=== PATIENT | male | born 1940 | race African-American/Black ===

== ENCOUNTER 2017-11-15 00:02 | Inpatient (IN) | payer MEDICARE, BC, OTHER ==
[2017-11-15 01:05] VITALS: BP 125/65; PULSE 72; RESP 22; TEMP 98; O2SAT 99
[2017-11-15] MEDS ORDERED: ACETAMINOPHEN 325 MG TAB PO PRN ×2 (01:45→10:45)
[2017-11-15] MEDS ORDERED: diphenhydrAMINE HCL 50 MG CAP - HS PRN PO (01:45)
[2017-11-15] MEDS ORDERED: diphenhydrAMINE HCL 50 MG/ML VIAL - HS PRN IM (01:45)
[2017-11-15] MEDS ORDERED: MAGNESIUM HYDROXIDE SUSP 30 ML CUP PO PRN ×2 (01:45→10:45)
[2017-11-15] MEDS ORDERED: ALUMINUM/MAGNESIUM/SIMETH 30 ML CUP PO PRN ×2 (01:45→10:45)
[2017-11-15] MEDS ORDERED: hydrOXYzine HCL 50 MG TAB PO PRN (01:45)
[2017-11-15 04:45] VITALS: BP 128/61; PULSE 60; RESP 17; TEMP 98.1; O2SAT 100
[2017-11-15] MEDS ORDERED: LORazepam 0.5 MG TAB PO PRN (10:45)
[2017-11-15] MEDS ORDERED: LORazepam 2 MG/ML VIAL IM PRN ×2 (10:45)
[2017-11-15] MEDS ORDERED: LORazepam 1 MG TAB PO PRN (10:45)
--- NOTE | 2017-11-15 10:55 | HHI.HP ---
Provisional Diagnosis Admission Date Nov 15, 2017 at 01:00 [place]. 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 Express and informed consent means consent voluntarily given in writing, by a competent person, after sufficient explanation and disclosure of the subject matter involved to enable the person to make a knowing and willful decision without any element of force, fraud, deceit, duress, or other form of constraint or coercion. This person is 18 years of age or older, is not now known to be incompetent to consent to treatment with a guardian advocate, and does not have a health care surrogate or proxy currently making medical treatment decisions. I have found this person to be one of the following: [] Competent to provide express and informed consent, as defined above, for voluntary admission to this facility and is competent to provide express and informed consent for treatment. He/she has the consistent capacity to make well reasoned, willful, and knowing decisions concerning his or her medical or mental health treatment. The person fully and consistently understands the purpose of the admission for examination/placement and is fully capable of personally exercising all rights assured under [place] Incompetent to provide express and informed consent to voluntary admission , and this is incompetent to provide express and informed consent to treatment. The person must be transferred to involuntary status and a petition for a guardian advocate filed with the Circuit Court. [] Refusing to provide express and informed consent to voluntary admission but is competent to provide express and informed consent for treatment. The person must be discharged or transferred to involuntary status. Form shall be completed within 24 hours of a person's arrival at the receiving facility and filed in the clinical record of each person: 1. Admitted on a voluntary basis 2. Permitted to provide express and informed consent to his/her own treatment 3. Allowed to transfer from involuntary to voluntary status 4. Prior to permitting a person to consent to his or her own treatment after having been previously found incompetent to consent to treatment. History of Present Illness Capacity: Lacks Capacity Psych Chief Complaint: patient demented, assaultive towards HPI Patient is a 77 with Afro-Rwandan male comes here under an ex parte signed by his and signed by Employee Benefits Insurance Agent Munir. Patient initially screened at [facility] with urine toxicology negative bladder: Negative. Patient transferred here under the [place] act. The ex parte states patient has been showing increased aggression at home physically laying hands on his pushing shoving her to the blood pressure feels fearful for her safety. It appears there is no other past significant psychiatric history. At the present time patient sitting quietly in his room RN present throughout session and family practice resident Dr. Khan he is calm cooperative though obviously diffusely confused making efforts to disguises his confusion and disorientation. While he knows his [place] and [place] [id number] in November he is confused as to if this is really a hospital, he does not know the activities going on in the city right now. Attempted looks like he is guessing get an answer and watching our expressions. He is confusing also as to his marital status. The activities that occurred leading to the ex parte. He does deny any prior psychiatric contact hospitalization her psychotropic medication. He denies any suicidality homicidality voices or visions. He is somewhat vague about use of alcohol and marijuana. At this time patient does meet criteria for involuntary psychiatric hospitalization under the Tol[place] act. I'll do first opinion request second opinion. I feel he does not have capacity. I'll ask for healthcare surrogate and guardian advocate. Above hospitalist also consult of this gentleman. Also have PT consult with us. Will have counselor contact patient's to get further information Review of Systems Constitutional: DENIES: Diaphoretic episodes, Fatigue, Fever, Weight gain, Weight loss, Chills, Dizziness, Change in appetite, Night Sweats Endocrine: DENIES: Heat/cold intolerance, Polydipsia, Polyuria, Polyphagia Eyes: DENIES: Blurred vision, Diplopia, Eye inflammation, Eye pain, Vision loss , Photosensitivity, Double Vision Ears, nose, mouth, throat: DENIES: Tinnitus, Hearing loss, Vertigo, Nasal discharge, Oral lesions, Throat pain, Hoarseness, Ear Pain, Running Nose, Epistaxis, Sinus Pain, Toothache, Odynophagia Respiratory: DENIES: Apneas, Cough, Snoring, Wheezing, Hemoptysis, Sputum production, Shortness of breath Cardiovascular: DENIES: Chest pain, Palpitations, Syncope, Dyspnea on Exertion , PND, Lower Extremity Edema, Orthopnea, Claudication Gastrointestinal: DENIES: Abdominal pain, Black stools, Bloody stools, Constipation, Diarrhea, Nausea, Vomiting, Difficulty Swallowing, Anorexia Genitourinary: DENIES: Sexual dysfunction, Urinary frequency, Urinary incontinence, Urgency, Hematuria, Dysuria, Nocturia, Penile Discharge, Testicular Pain, Testicular Swelling Musculoskeletal: DENIES: Joint pain, Muscle aches, Stiffness, Joint Swelling, Back pain, Neck pain Integumentary: DENIES: Abnormal pigmentation, Nail changes, Pruritus, Rash Hematologic/lymphatic: DENIES: Bruising, Lymphadenopathy Immunologic/allergic: DENIES: Eczema, Urticaria Neurologic: DENIES: Abnormal gait, Headache, Localized weakness, Paresthesias, Seizures, Speech Problems, Tremor, Poor Balance Psychiatric: COMPLAINS OF: Agitation Past Psych History Violence risk - others (6 mos) Patient assaultive towards Violence risk - self (6 mos) Low Substance Abuse History Drugs/Alcohol past 12 months Patient vaguely denies Past Family Social History Coded Allergies: No Known Allergies (Verified Allergy, Unknown, 11/15/17) Current Medications Medications (Trade) Dose Ordered Sig/Ramón Route Start Time Stop Time Status Last Admin (Atarax) 50 mg Q6H PRN PO 11/15/17 01:45 (Benadryl) 50 mg HS PRN PO 11/15/17 01:45 (Benadryl Inj) 50 mg HS PRN IM 11/15/17 01:45 (Tylenol) 650 mg Q4H PRN PO 11/15/17 01:45 (Milk Of Magnesia Liq) 30 ml DAILY PRN PO 11/15/17 01:45 (Mag-Al Plus Susp Liq) 30 ml Q6H PRN PO 11/15/17 01:45 Family Psych History Unknown at this time Social History Patient states he is and lives with his , did mention other family members though is quite vague and confusing Patient's Strengths (min. 2) Patient verbal irritable axis health care Physical Exam Patient seen screened in the [facility] at the present time patient sitting quietly in his room is in no acute distress, is in no respiratory distress, no complaints of abdominal pain. Patient overall 4 extremities without difficulty Vital Signs Vital Signs Date Time Temp Pulse Resp B/P (MAP) Pulse Ox O2 Delivery O2 Flow Rate FiO2 11/15/17 04:45 98.1 60 17 128/61 (83) 100 Mental Status Examination Appearance: Disheveled Consciousness: Alert Orientation: Person, Place (vaguely), Date/Time (vaguely) Motor Activity: Normal gait Speech: Unremarkable Language: Adequate Fund of Knowledge: Inadequate Attention and Concentration: Easily Distracted Memory: Impaired Mood: Other (euthymic to mildly dysphoric) Affect: Other (slight decrease range of motion intensity) Thought Process & Associations: Disorganized Thought Content: Other (disorganized) Hallucination Type: None Delusion Type: None (vigilant) Suicidal Ideation: No Suicidal Plan: No Suicidal Intention: No Homicidal Ideation: No Homicidal Plan: No Homicidal Intention: No Insight: Poor Judgment: Poor Assessment & Plan Problem List: (1) ALZHEIMER'S DISEASE WITH LATE ONSET ICD Codes: G30.1 - ALZHEIMER'S DISEASE WITH LATE ONSET (2) DEMENTIA IN OTH DISEASES CLASSD ELSWHR W BEHAVIORAL DISTURB ICD Codes: F02.81 - DEMENTIA IN OTH DISEASES CLASSD ELSWHR W BEHAVIORAL DISTURB Assessment & Plan Estimated LOS: days patient doesn't meet criteria for involuntary psychiatric hospitalization of the [place] act I'll do first opinion per second opinion. I feel he doesn't have capacity we'll ask for guarded advocate health care surrogate. We will have hospitalist consult was, PT consult with us. Have counselor attempt to reach patient's to arrange for a family meeting Discharge Planning To be determined Request HC Surrog/Guard Advoc?: Yes Tacos Jimenez MD Nov 15, 2017 10:55
[2017-11-15 18:02] VITALS: BP 122/68; PULSE 71; RESP 17; TEMP 98.4; O2SAT 99
[2017-11-16 08:53] LABS: BICARBONATE 30.1 MEQ/L (21.0-32.0); BLOOD UREA NITROGEN 12 MG/DL (7-18); CALCIUM 9.4 MG/DL (8.5-10.1); CHLORIDE 107 MEQ/L (98-107); CHOLESTEROL 163 MG/DL (120-200); CREATININE 1.02 MG/DL (0.60-1.30); GLOMERULAR FILTRATION RATE 86 ML/MIN (>89); GLUCOSE,RANDOM 103 MG/DL (74-106); SODIUM (NA) 143 MEQ/L (136-145); TRIGLYCERIDES 44 MG/DL (42-150)
[2017-11-16 08:54] LABS: CHOLESTEROL/ HDL RATIO 2.27 RATIO; HDL CHOLESTEROL 71.8 MG/DL (40.0-60.0); LDL CHOLESTEROL 82 MG/DL (0-99)
[2017-11-16] MEDS: REMOVE OLD PATCH T-DERMAL SCH (08:57)
[2017-11-16] MEDS: NICOTINE 21 MG/24 HR PATCH T-DERMAL SCH (08:57)
[2017-11-16 09:02] VITALS: BP 135/70; PULSE 72; RESP 17; TEMP 98.2; O2SAT 100
[2017-11-16 09:03] VITALS: BP 135/70; PULSE 72; RESP 17; TEMP 98.2; O2SAT 100
--- NOTE | 2017-11-16 09:41 | HHI.PYPN ---
Subjective Chief Complaint: patient demented, assaultive towards Remarks Patient seen in day room with nurse a show and counselor program. Patient chart review, patient discussed with nurse. Patient sitting quietly in day room he is alert diffusely confused all 4 spheres. Though is making a valiant effort. Confabulation to disguises. He is been no behavioral problems so far. For now continue observation assessment. Still need to attempt to speak with family considering placement issues Review of Systems Except as stated in HPI: all other systems reviewed are Neg Mental Status Examination Appearance: Disheveled Consciousness: Alert Orientation: Person, Place (vaguely), Date/Time (vaguely) Motor Activity: Normal gait Speech: Unremarkable Language: Adequate Fund of Knowledge: Inadequate Attention and Concentration: Easily Distracted Memory: Impaired Mood: Other (euthymic to mildly dysphoric) Affect: Other (slight decrease range of motion intensity) Thought Process & Associations: Disorganized Thought Content: Other (disorganized) Hallucination Type: None Delusion Type: None (vigilant) Suicidal Ideation: No Suicidal Plan: No Suicidal Intention: No Homicidal Ideation: No Homicidal Plan: No Homicidal Intention: No Insight: Poor Judgment: Poor Results Labs Test 11/16/17 07:50 Blood Urea Nitrogen 12 MG/DL Creatinine 1.02 MG/DL Random Glucose 103 MG/DL Calcium Level 9.4 MG/DL Sodium Level 143 MEQ/L Potassium Level 4.2 MEQ/L Chloride Level 107 MEQ/L Carbon Dioxide Level 30.1 MEQ/L Anion Gap 6 MEQ/L Estimat Glomerular Filtration Rate 86 ML/MIN Triglycerides Level 44 MG/DL Cholesterol Level 163 MG/DL LDL Cholesterol 82 MG/DL HDL Cholesterol 71.8 MG/DL Cholesterol/HDL Ratio 2.27 RATIO Vitals/IOs Vital Signs Date Time Temp Pulse Resp B/P (MAP) Pulse Ox O2 Delivery O2 Flow Rate FiO2 11/16/17 09:03 98.2 72 17 135/70 (91) 100 Intake and Output 11/16/17 11/16/17 11/17/17 08:00 16:00 00:00 Intake Total 240 ml 360 ml Balance 240 ml 360 ml Assessment & Plan Problem List: (1) ALZHEIMER'S DISEASE WITH LATE ONSET ICD Codes: G30.1 - ALZHEIMER'S DISEASE WITH LATE ONSET (2) DEMENTIA IN OTH DISEASES CLASSD ELSWHR W BEHAVIORAL DISTURB ICD Codes: F02.81 - DEMENTIA IN OTH DISEASES CLASSD ELSWHR W BEHAVIORAL DISTURB Assessment & Plan Estimated LOS: days patient remains demented and confused, though no behavioral problems at this time. For now continue treatment observation and assessment Justification for Cont. Inpt. At this time patient will decompensate with placed a lower level of care Discharge Planning Placement needs to discussed with patient's family Request HC Surrog/Guard Advoc?: Yes Tacos Jimenez MD Nov 16, 2017 09:41
--- NOTE | 2017-11-16 10:10 | PD.PSY.CON ---
Provisional Diagnosis Admission Date Nov 15, 2017 at 01:00 [place] I. 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 Jimenez Reason for Consult Second opinion Primary Care Physician Non-Staff HPI Patient is a 77 with Afro-Vietnamese male comes here under an ex parte signed by his and signed by Emblem Drawer In Munir. Patient initially screened at [facility] with urine toxicology negative bladder: Negative. Patient transferred here under the [place] act. The ex parte states patient has been showing increased aggression at home physically laying hands on his pushing shoving her to the blood pressure feels fearful for her safety. It appears there is no other past significant psychiatric history. At the present time patient sitting quietly in his room RN present throughout session and family practice resident Dr. Khan he is calm cooperative though obviously diffusely confused making efforts to disguises his confusion and disorientation. While he knows his [place] [id number] in November he is confused as to if this is really a hospital, he does not know the activities going on in the city right now. Attempted looks like he is guessing get an answer and watching our expressions. He is confusing also as to his marital status. The activities that occurred leading to the ex parte. He does deny any prior psychiatric contact hospitalization her psychotropic medication. He denies any suicidality homicidality voices or visions. He is somewhat vague about use of alcohol and marijuana. At this time patient does meet criteria for involuntary psychiatric hospitalization under the Tolbert act. I'll do first opinion request second opinion. I feel he does not have capacity. I'll ask for healthcare surrogate and guardian advocate. Above hospitalist also consult of this gentleman. Also have PT consult with us. Will have counselor contact patient's to get further information. The patient is a 77 -Vietnamese man, domiciled in [place], who came under ex-parte, initiated by his due to increased aggressive behavior at home with his . Patient was consulted to me for second opinion. On psychiatric evaluation patient is calm, disoriented, confused. Patient does not know the reason of his hospitalization, he does not remember what brought him here. He says that he was brought here because his phone was ringing and his was not picking up. Patient has a little confabulatory statement to fill out gap of memory. He reports good mood, denies suicidal or homicidal ideation, denies visual and auditory hallucinations. Past Family Social History Coded Allergies: No Known Allergies (Verified Allergy, Unknown, 11/15/17) Current Medications Medications (Trade) Dose Ordered Sig/Ramón Route Start Time Stop Time Status Last Admin (Atarax) 50 mg Q6H PRN PO 11/15/17 01:45 (Benadryl) 50 mg HS PRN PO 11/15/17 01:45 (Tylenol) 650 mg Q4H PRN PO 11/15/17 01:45 (Milk Of Magnesia Liq) 30 ml DAILY PRN PO 11/15/17 01:45 (Mag-Al Plus Susp Liq) 30 ml Q6H PRN PO 11/15/17 01:45 (Ativan) 1 mg Q6H PRN PO 11/15/17 10:45 (Ativan Inj) 1 mg Q6H PRN IM 11/15/17 10:45 (Ativan) 0.5 mg Q12H PRN PO 11/15/17 10:45 (Ativan Inj) 0.5 mg Q12H PRN IM 11/15/17 10:45 (Habitrol 21 Mg Patch.24 Hr) 1 patch DAILY T-DERMAL 11/16/17 09:00 Miscellaneous Information 1 DAILY T-DERMAL 11/16/17 09:00 Patient's Strengths (min. 2) Patient verbal irritable axis health care Physical Exam Vital Signs Vital Signs Date Time Temp Pulse Resp B/P (MAP) Pulse Ox O2 Delivery O2 Flow Rate FiO2 11/16/17 09:03 98.2 72 17 135/70 (91) 100 I/O 11/16/17 11/16/17 11/17/17 08:00 16:00 00:00 Intake Total 240 ml 360 ml Balance 240 ml 360 ml Lab Results Test 11/16/17 07:50 Blood Urea Nitrogen 12 MG/DL Creatinine 1.02 MG/DL Random Glucose 103 MG/DL Calcium Level 9.4 MG/DL Sodium Level 143 MEQ/L Potassium Level 4.2 MEQ/L Chloride Level 107 MEQ/L Carbon Dioxide Level 30.1 MEQ/L Anion Gap 6 MEQ/L Estimat Glomerular Filtration Rate 86 ML/MIN Triglycerides Level 44 MG/DL Cholesterol Level 163 MG/DL LDL Cholesterol 82 MG/DL HDL Cholesterol 71.8 MG/DL Cholesterol/HDL Ratio 2.27 RATIO Mental Status Examination Appearance: Disheveled Consciousness: Alert Orientation: Person, Place (vaguely), Date/Time (vaguely) Motor Activity: Normal gait Speech: Unremarkable Language: Adequate Fund of Knowledge: Inadequate Attention and Concentration: Easily Distracted Memory: Impaired Mood: Other (euthymic to mildly dysphoric) Affect: Other (slight decrease range of motion intensity) Thought Process & Associations: Disorganized Thought Content: Other (disorganized) Hallucination Type: None Delusion Type: None (vigilant) Suicidal Ideation: No Suicidal Plan: No Suicidal Intention: No Homicidal Ideation: No Homicidal Plan: No Homicidal Intention: No Insight: Poor Judgment: Poor Assessment & Plan Problem List: (1) ALZHEIMER'S DISEASE WITH LATE ONSET ICD Codes: G30.1 - ALZHEIMER'S DISEASE WITH LATE ONSET (2) DEMENTIA IN OTH DISEASES CLASSD ELSWHR W BEHAVIORAL DISTURB ICD Codes: F02.81 - DEMENTIA IN OTH DISEASES CLASSD ELSWHR W BEHAVIORAL DISTURB Assessment & Plan: I have seen and examined this patient, reviewed documentation, I agree and concur with Dr. Jimenez's assessment and plan. Assessment & Plan Estimated LOS: days Request HC Surrog/Guard Advoc?: Yes Sly Spencer MD Nov 16, 2017 10:10
[2017-11-16 16:15] LABS: HEMOGLOBIN A1C 5.6 % (4.3-6.0)
[2017-11-16 18:02] VITALS: BP 120/56; PULSE 82; RESP 18; TEMP 98.6; O2SAT 100
[2017-11-17 06:53] VITALS: BP 131/67; PULSE 68; RESP 17; TEMP 97.3; O2SAT 97
[2017-11-17] MEDS: REMOVE OLD PATCH T-DERMAL SCH (09:00)
[2017-11-17] MEDS: NICOTINE 21 MG/24 HR PATCH T-DERMAL SCH (09:00)
--- NOTE | 2017-11-17 17:35 | HHI.PYPN ---
Subjective Chief Complaint: patient demented, assaultive towards Remarks Patient was seen and case discussed with nursing. Patient is alert and oriented 2. He has not been aggressive or agitated. Insight is poor concerning his admission. Thought processes tangential. Nursing is concerned about reconciliation of medical medications. Patient denies suicidal or homicidal ideation intent or plan Mental Status Examination Appearance: Disheveled Consciousness: Alert Orientation: Person, Place (vaguely), Date/Time (vaguely) Motor Activity: Normal gait Speech: Unremarkable Language: Adequate Fund of Knowledge: Inadequate Attention and Concentration: Easily Distracted Memory: Impaired Mood: Other (euthymic to mildly dysphoric) Affect: Other (slight decrease range of motion intensity) Thought Process & Associations: Disorganized Thought Content: Other (disorganized) Hallucination Type: None Delusion Type: None (vigilant) Suicidal Ideation: No Suicidal Plan: No Suicidal Intention: No Homicidal Ideation: No Homicidal Plan: No Homicidal Intention: No Insight: Poor Judgment: Poor Results Vitals/IOs Vital Signs Date Time Temp Pulse Resp B/P (MAP) Pulse Ox O2 Delivery O2 Flow Rate FiO2 11/17/17 06:53 97.3 68 17 131/67 (88) 97 Intake and Output 11/17/17 11/17/17 11/18/17 08:00 16:00 00:00 Intake Total 960 ml Balance 960 ml Assessment & Plan Problem List: (1) ALZHEIMER'S DISEASE WITH LATE ONSET ICD Codes: G30.1 - ALZHEIMER'S DISEASE WITH LATE ONSET (2) DEMENTIA IN OTH DISEASES CLASSD ELSWHR W BEHAVIORAL DISTURB ICD Codes: F02.81 - DEMENTIA IN OTH DISEASES CLASSD ELSWHR W BEHAVIORAL DISTURB Assessment & Plan Medical consult for medication reconciliation Justification for Cont. Inpt. Patient would decompensate in a less restrictive setting Request HC Surrog/Guard Advoc?: Yes Milan Goss DO Nov 17, 2017 17:35
[2017-11-17 18:07] VITALS: BP 110/60; PULSE 77; RESP 17; TEMP 98; O2SAT 99
[2017-11-17 18:08] VITALS: BP 110/60; PULSE 77; RESP 17; TEMP 97.6; O2SAT 99
[2017-11-17] MEDS ORDERED: MEMA1TAB2 PO (18:34)
[2017-11-17] MEDS ORDERED: AMLO10TA2 PO (18:34)
[2017-11-17] MEDS ORDERED: ECASA81 PO (18:34)
[2017-11-17] MEDS ORDERED: TYLE325T PO (18:34)
[2017-11-18 05:28] VITALS: BP 145/70; PULSE 92; RESP 18; TEMP 97.9; O2SAT 98
[2017-11-18] MEDS: REMOVE OLD PATCH T-DERMAL SCH (09:00)
[2017-11-18] MEDS: NICOTINE 21 MG/24 HR PATCH T-DERMAL SCH (09:00)
--- NOTE | 2017-11-18 10:21 | PD.CONS ---
HPI Service [facility] [address] Hospitalists Consult Requested By Psychiatric services Reason for Consult Medical management Primary Care Physician Non-Staff Diagnoses: History of Present Illness This is a 77-year-old male with past medical history of hypertension and dementia who was admitted to inpatient psychiatric unit under ex parte signed by his and Judge Amaral transferred from [facility] under [place] act. Per medical record, ex parte stated patient had been showing increased aggression at home, pushing and shoving his and causing her to be fearful for her safety. Hospitalist services have been consulted for medical management, specifically medication reconciliation. Patient seen and examined. Patient is very guarded and will not provide much information. This may be in part to worsening confusion and an attempt to disguise his inability to answer the questions. He denies having any past medical history or taking any medications at home. He is overall vague with his responses and becomes increasingly agitated with questioning. He initially refused examination but then acquiesced although was not fully participatory. He denies any complaints of fever or chills. Denies any chest pain or shortness of breath. When asked about any abdominal complaints patient stated to me that he is "healthy person who is not sick". He would not give specific answers to any further questioning. He is extremely focused on why he is here in the hospital and is demanding to be told what is going to happen to him and when he can be released. He stated multiple times "we keep asking the same questions but no one is telling me anything". Review of Systems Except as stated in HPI: all other systems reviewed are Neg Past Family Social History Allergies: Coded Allergies: No Known Allergies (Verified Allergy, Unknown, 11/15/17) Past Medical History Hypertension and dementia, both of which patient denies Past Surgical History Back surgery Reported Medications Tylenol (Acetaminophen) 325 Mg Tab 650 Mg PO Q4H PRN Memantine 10 Mg Tab 10 Mg PO DAILY Aspirin DR (Aspirin) 81 Mg Tabdr 81 Mg PO DAILY Amlodipine (Amlodipine Besylate) 10 Mg Tab 10 Mg PO DAILY Active Ordered Medications Current Medications Medications (Trade) Dose Ordered Sig/Ramón Route Start Time Stop Time Status Last Admin (Atarax) 50 mg Q6H PRN PO 11/15/17 01:45 (Benadryl) 50 mg HS PRN PO 11/15/17 01:45 (Tylenol) 650 mg Q4H PRN PO 11/15/17 01:45 (Milk Of Magnesia Liq) 30 ml DAILY PRN PO 11/15/17 01:45 (Mag-Al Plus Susp Liq) 30 ml Q6H PRN PO 11/15/17 01:45 (Ativan) 1 mg Q6H PRN PO 11/15/17 10:45 (Ativan Inj) 1 mg Q6H PRN IM 11/15/17 10:45 (Ativan) 0.5 mg Q12H PRN PO 11/15/17 10:45 (Ativan Inj) 0.5 mg Q12H PRN IM 11/15/17 10:45 (Habitrol 21 Mg Patch.24 Hr) 1 patch DAILY T-DERMAL 11/16/17 09:00 Miscellaneous Information 1 DAILY T-DERMAL 11/16/17 09:00 (Norvasc) 10 mg DAILY PO 11/18/17 09:00 (Ecotrin Ec) 81 mg DAILY PO 11/18/17 09:00 (Namenda) 10 mg DAILY PO 11/18/17 09:00 Family History Father, when patient was 4 or 5 years old, unknown details Mother, , unknown details Social History When questioned about tobacco and alcohol use or drug use patient gives vague response "that wasn't anything I was about". Physical Exam Vital Signs Vital Signs Date Time Temp Pulse Resp B/P (MAP) Pulse Ox O2 Delivery O2 Flow Rate FiO2 11/18/17 05:28 97.9 92 18 145/70 (95) 98 11/17/17 18:08 97.6 77 17 110/60 (77) 99 11/17/17 18:07 98.0 77 17 110/60 (77) 99 Physical Exam GENERAL: This is a well-nourished, well-developed male patient , in no apparent distress. Witnessed ambulating in the justice without any difficulty. Awake and alert. SKIN: No rashes, ecchymoses or lesions. Cool and dry. HEAD: Atraumatic. Normocephalic. No temporal or scalp tenderness. EYES: Extraocular motions intact. No scleral icterus. No injection or drainage. ENT: Nose without bleeding or purulent drainage. Throat without erythema, tonsillar hypertrophy or exudate. Uvula midline. Airway patent. NECK: Trachea midline. No lymphadenopathy. Supple, nontender, no meningeal signs. CARDIOVASCULAR: Regular rate and rhythm without murmurs, gallops, or rubs. RESPIRATORY: Clear to auscultation. Breath sounds equal bilaterally. No wheezes , rales, or rhonchi. GASTROINTESTINAL: Abdomen soft, non-tender, nondistended. No hepato-splenomegaly , or palpable masses. No guarding. MUSCULOSKELETAL: Extremities without clubbing, cyanosis, or edema. No joint tenderness, effusion, or edema noted. No calf tenderness. NEUROLOGICAL: Awake and alert. Cranial nerves II through XII grossly intact. Able to move all extremities spontaneously. No focal neurologic findings appreciated. Somewhat tangential speech. PSYCHIATRIC: Slightly agitated with questioning. Inappropriate judgment and insight. Result Diagram: 11/16/17 0750 Assessment and Plan Assessment and Plan 77-year-old male with past medical history of hypertension and dementia who was admitted to inpatient psychiatric unit under ex parte signed by his and Asset Accountant Munir transferred from [facility] under [place] act. Per medical record, ex parte stated patient had been showing increased aggression at home, pushing and shoving his and causing her to be fearful for her safety. Hospitalist services have been consulted for medical management, specifically medication reconciliation. Alzheimer's dementia with behavioral disturbance -Management per psychiatric team -Will obtain CBC, TSH level, RPR, B12 and UA to r/o organic etiology of patients worsening AMS Hypertension -Patient's blood pressure has been well controlled off of medication. Mildly elevated BP this morning but suspect could be due to agitation -Would hold off on resuming home Norvasc at this time and if blood pressures do become more elevated, would recommend resuming at lower dose of Norvasc 5 mg daily -Clonidine when necessary with parameters -Continue to monitor BP and adjust treatment accordingly DVT prophylaxis -patient is ambulatory Thank you very kindly for this consultation. Discussed Condition With patient, Zayra Le RN Nov 18, 2017 10:21
[2017-11-18] MEDS ORDERED: cloNIDine HCL 0.1 MG TAB PO PRN (10:45)
[2017-11-18] MEDS: MEMANTINE HCL 10 MG TAB PO SCH (11:49)
[2017-11-18] MEDS: ASPIRIN EC 81 MG TABEC PO SCH (11:49)
--- NOTE | 2017-11-18 12:50 | HHI.PYPN ---
Subjective Chief Complaint: patient demented, assaultive towards Remarks Patient was seen and case discussed with nursing. Patient continues poor insight into admission. Compliant with medications. Alert and oriented 2. No outbursts. Behaving well on the unit Mental Status Examination Appearance: Disheveled Consciousness: Alert Orientation: Person, Place (vaguely), Date/Time (vaguely) Motor Activity: Normal gait Speech: Unremarkable Language: Adequate Fund of Knowledge: Inadequate Attention and Concentration: Easily Distracted Memory: Impaired Mood: Other (euthymic to mildly dysphoric) Affect: Other (slight decrease range of motion intensity) Thought Process & Associations: Disorganized Thought Content: Other (disorganized) Hallucination Type: None Delusion Type: None (vigilant) Suicidal Ideation: No Suicidal Plan: No Suicidal Intention: No Homicidal Ideation: No Homicidal Plan: No Homicidal Intention: No Insight: Poor Judgment: Poor Results Vitals/IOs Vital Signs Date Time Temp Pulse Resp B/P (MAP) Pulse Ox O2 Delivery O2 Flow Rate FiO2 11/18/17 05:28 97.9 92 18 145/70 (95) 98 Intake and Output 11/18/17 11/18/17 11/18/17 07:59 15:59 23:59 Intake Total 900 ml Balance 900 ml Assessment & Plan Problem List: (1) ALZHEIMER'S DISEASE WITH LATE ONSET ICD Codes: G30.1 - ALZHEIMER'S DISEASE WITH LATE ONSET (2) DEMENTIA IN OTH DISEASES CLASSD ELSWHR W BEHAVIORAL DISTURB ICD Codes: F02.81 - DEMENTIA IN OTH DISEASES CLASSD ELSWHR W BEHAVIORAL DISTURB Assessment & Plan Continue current treatment plan Justification for Cont. Inpt. Patient would decompensate in a less restrictive setting Request HC Surrog/Guard Advoc?: Yes Milan Goss DO Nov 18, 2017 12:50
[2017-11-18 14:24] LABS: AUTOMATED NEUTROPHIL # 2.8 TH/MM3 (1.8-7.7); BASOPHIL % 0.8 % (0.0-2.0); EOSINOPHIL # 0.2 TH/MM3 (0-0.4); EOSINOPHIL % 3.3 % (0.0-4.0); HEMOGLOBIN 11.2 GM/DL (13.0-17.0); LYMPH % 28.9 % (9.0-44.0); LYMPHOCYTE # 1.3 TH/MM3 (1.0-4.8); MEAN CELL VOLUME 80.6 FL (80.0-100.0); MEAN CORPUSCULAR HEMOGLOBIN 26.5 PG (27.0-34.0); MEAN CORPUSCULAR HGB CONC 32.9 % (32.0-36.0); MEAN PLATELET VOLUME 7.7 FL (7.0-11.0); MONO % 7.2 % (0.0-8.0); MONOCYTE # 0.3 TH/MM3 (0-0.9); NEUT % 59.8 % (16.0-70.0); PLATELET COUNT 254 TH/MM3 (150-450); RED BLOOD COUNT 4.22 MIL/MM3 (4.50-5.90); RED CELL DISTRIBUTION WIDTH 14.1 % (11.6-17.2); WHITE BLOOD COUNT 4.7 TH/MM3 (4.0-11.0)
[2017-11-18 15:44] VITALS: BP 119/70; PULSE 80; RESP 17; TEMP 97.2; O2SAT 97
[2017-11-18 17:17] LABS: BILIRUBIN, URINE NEG (NEG); BLOOD, URINE NEG (NEG); GLUCOSE,URINE NEG (NEG); KETONE, URINE NEG (NEG); MUCUS URINE FEW /lpf (OCC); NITRITE,URINE NEG (NEG); PH, URINE 5.5 (5.0-8.5); URINE COLOR YELLOW (YELLW/STRAW); URINE LEUKOCYTE ESTERASE NEG (NEG)
[2017-11-19 05:28] VITALS: BP 128/63; PULSE 80; RESP 17; TEMP 97.7; O2SAT 99
[2017-11-19] MEDS: MEMANTINE HCL 10 MG TAB PO SCH (08:28)
[2017-11-19] MEDS: NICOTINE 21 MG/24 HR PATCH T-DERMAL SCH (08:29)
[2017-11-19] MEDS: ASPIRIN EC 81 MG TABEC PO SCH (08:29)
[2017-11-19] MEDS: REMOVE OLD PATCH T-DERMAL SCH (08:29)
[2017-11-19] MEDS ORDERED: amLODIPine BESYLATE 5 MG TAB PO SCH (09:00)
--- NOTE | 2017-11-19 15:58 | HHI.PYPN ---
Subjective Chief Complaint: patient demented, assaultive towards Remarks Patient seen in day room with nurse Diana, chart review, patient compliant medications, patient discussed with nurse. Patient remains confused disoriented though with significant attempts at confabulation. He is somewhat reluctantly compliant medications at times need some encouragement. For now continue treatment Review of Systems Except as stated in HPI: all other systems reviewed are Neg Mental Status Examination Appearance: Disheveled Consciousness: Alert Orientation: Person, Place (vaguely), Date/Time (vaguely) Motor Activity: Normal gait Speech: Unremarkable Language: Adequate Fund of Knowledge: Inadequate Attention and Concentration: Easily Distracted Memory: Impaired Mood: Other (euthymic to mildly dysphoric) Affect: Other (slight decrease range of motion intensity) Thought Process & Associations: Disorganized Thought Content: Other (disorganized) Hallucination Type: None Delusion Type: None (vigilant) Suicidal Ideation: No Suicidal Plan: No Suicidal Intention: No Homicidal Ideation: No Homicidal Plan: No Homicidal Intention: No Insight: Poor Judgment: Poor Results Labs Test 11/18/17 16:00 Urine Color YELLOW Urine Turbidity CLEAR Urine pH 5.5 Urine Specific [place] 1.028 Urine Protein TRACE mg/dL Urine Glucose (UA) NEG mg/dL Urine Ketones NEG mg/dL Urine Occult Blood NEG Urine Nitrite NEG Urine Bilirubin NEG Urine Urobilinogen LESS THAN 2.0 MG/DL Urine Leukocyte Esterase NEG Urine RBC LESS THAN 1 /hpf Urine WBC 1 /hpf Urine Mucus FEW /lpf Microscopic Urinalysis Comment CULT NOT INDICATED Vitals/IOs Vital Signs Date Time Temp Pulse Resp B/P (MAP) Pulse Ox O2 Delivery O2 Flow Rate FiO2 11/19/17 05:28 97.7 80 17 128/63 (84) 99 Intake and Output 11/19/17 11/19/17 11/20/17 08:00 16:00 00:00 Intake Total 240 ml 240 ml Balance 240 ml 240 ml Assessment & Plan Problem List: (1) ALZHEIMER'S DISEASE WITH LATE ONSET ICD Codes: G30.1 - ALZHEIMER'S DISEASE WITH LATE ONSET (2) DEMENTIA IN OTH DISEASES CLASSD ELSWHR W BEHAVIORAL DISTURB ICD Codes: F02.81 - DEMENTIA IN OTH DISEASES CLASSD ELSWHR W BEHAVIORAL DISTURB Assessment & Plan Estimated LOS: days patient remains confused demented, reluctantly compliant medications, Justification for Cont. Inpt. At this time patient decompensated placed a lower level of care Discharge Planning With these to be determined with the assistance of patient's family Request HC Surrog/Guard Advoc?: Yes Tacos Jimenez MD Nov 19, 2017 15:58
[2017-11-19 17:31] VITALS: BP 113/70; PULSE 78; RESP 18; TEMP 97.7; O2SAT 98
[2017-11-20 06:19] VITALS: BP 125/68; PULSE 76; RESP 16; TEMP 98.2; O2SAT 98
[2017-11-20] MEDS: NICOTINE 21 MG/24 HR PATCH T-DERMAL SCH (07:51)
[2017-11-20] MEDS: REMOVE OLD PATCH T-DERMAL SCH (07:51)
[2017-11-20] MEDS: ASPIRIN EC 81 MG TABEC PO SCH (09:00)
[2017-11-20] MEDS: MEMANTINE HCL 10 MG TAB PO SCH (09:00)
--- NOTE | 2017-11-20 09:57 | HHI.PYPN ---
Subjective Chief Complaint: patient demented, assaultive towards Remarks Patient seen today in day room with nurse , chart review, patient compliant medications, patient discussed with nurse. Patient continues confused disoriented though with attempts of confabulation to mask this. We'll have neurology consult will thus help refine her diagnosis. Review of Systems Except as stated in HPI: all other systems reviewed are Neg Mental Status Examination Appearance: Disheveled Consciousness: Alert Orientation: Person, Place (vaguely), Date/Time (vaguely) Motor Activity: Normal gait Speech: Unremarkable Language: Adequate Fund of Knowledge: Inadequate Attention and Concentration: Easily Distracted Memory: Impaired Mood: Other (euthymic to mildly dysphoric) Affect: Other (slight decrease range of motion intensity) Thought Process & Associations: Disorganized Thought Content: Other (disorganized) Hallucination Type: None Delusion Type: None (vigilant) Suicidal Ideation: No Suicidal Plan: No Suicidal Intention: No Homicidal Ideation: No Homicidal Plan: No Homicidal Intention: No Insight: Poor Judgment: Poor Results Vitals/IOs Vital Signs Date Time Temp Pulse Resp B/P (MAP) Pulse Ox O2 Delivery O2 Flow Rate FiO2 11/20/17 06:19 98.2 76 16 125/68 (87) 98 Assessment & Plan Problem List: (1) ALZHEIMER'S DISEASE WITH LATE ONSET ICD Codes: G30.1 - ALZHEIMER'S DISEASE WITH LATE ONSET (2) DEMENTIA IN OTH DISEASES CLASSD ELSWHR W BEHAVIORAL DISTURB ICD Codes: F02.81 - DEMENTIA IN OTH DISEASES CLASSD ELSWHR W BEHAVIORAL DISTURB Assessment & Plan Estimated LOS: days patient continues confused with significant confabulation related to his memory loss. Left neurology consult with us Justification for Cont. Inpt. At this time patient will decompensate placed in the lower level of care Discharge Planning To be determined Request HC Surrog/Guard Advoc?: Yes Tacos Jimenez MD Nov 20, 2017 09:57
--- NOTE | 2017-11-20 13:37 | MB ---
cc: Jennifer Baxter MD DATE OF CONSULT: REASON FOR CONSULTATION: Possible dementia, memory issues. HISTORY OF PRESENT ILLNESS: The patient is a 77-year-old man who was brought in, initially screened at [facility] with a negative urine toxicology, transferred here under a [place] Act for increased aggression at home, physically lying in his hands on his , pushing, shoving her to the point where she is fearful for her safety. Per chart, there is no history of psychiatry problems in the past. He is calm and cooperative, but he is somewhat confused and has trouble expressing himself. He was admitted for evaluation and neurology is asked to evaluate him for his memory problems. The patient cannot really give me much of a history, but he does try to refer back to his . He cannot tell me exactly how long he is . He states sometime possibly end of last year, has trouble expressing himself, goes off on tangents. May confabulate at times as well. Per chart, there is no history of any substance abuse. ALLERGIES: NONE REPORTED. FAMILY HISTORY: Unknown. PHYSICAL EXAMINATION: GENERAL: He is a 77-year-old man, in the day room. No distress, ambulating. VITAL SIGNS: Vitals are stable. Blood pressure 125/68, pulse 76, respiratory rate 16. NEUROLOGIC: He is awake and alert. He knows himself. He knows it is November. He knows it is Sunday, the 2017. His speech at times is very stressed, sometimes anxious. He does not state his 's name and he goes off and tells me that he has been in the [place] 23 or 24 years. He was asked about his and he states that she is [place], and I did ask him if he has been to the [facility] and he became somewhat angry at that question. His motor skills are normal. He does not exhibit any weakness, no shuffling gait. He does not like to participate much with questioning, gets a bit agitated. LABORATORY DATA: Reviewed. His hemoglobin is 11.2, platelets are 254,000. Chemistries: B12 is 328. TSH 1.740. RPR nonreactive. GFR is 86. There is no imaging. IMPRESSION: Possible new onset dementia, may just have not been diagnosed, versus other to be determined. I would recommend getting an MRI of the brain without contrast as well as an electroencephalogram. You certainly could supplement his B12. It is somewhat on the lower aspect of normal. He can take 1000 mcg daily without an issue. I see Namenda was started 10 mg daily. It should be increased over the course of the next couple of weeks to 10 mg b.i.d. Continue his baby aspirin. Depending on findings, if his MRI or EEG are abnormal, further recommendations will be made accordingly. He seems to be okay with testing. When I informed him I would like to order a few tests, he did not seem to mind. Hopefully, he will allow us to get the 2 tests. MD IVON Prasad/DU , 01:10 PM , 01:36 PM
[2017-11-20 17:15] VITALS: BP 128/63; PULSE 78; RESP 16; TEMP 97.2; O2SAT 98
--- NOTE | 2017-11-20 20:13 | MG ---
cc: Roberto Chandler MD Requested followup. An EEG was obtained on this 77-year-old patient being evaluated for disorientation. MEDICATIONS: Aspirin and Namenda. The EEG shows a lot of low-amplitude beta rhythms and there are some 10-12 per second alpha rhythms as well. The background is reactive. There is muscle artifact. There are some theta rhythms and even some delta activity in light sleep. Photic stimulation shows mild driving response. INTERPRETATION: Normal awake and drowsy electroencephalogram. Roberto Chandler MD OFC/rt , 07:56 PM , 08:11 PM
[2017-11-21 06:23] VITALS: BP 130/57; PULSE 74; RESP 17; TEMP 97.9; O2SAT 98
[2017-11-21] MEDS: ASPIRIN EC 81 MG TABEC PO SCH (08:52)
[2017-11-21] MEDS: MEMANTINE HCL 10 MG TAB PO SCH (08:53)
[2017-11-21] MEDS: NICOTINE 21 MG/24 HR PATCH T-DERMAL SCH (08:53)
[2017-11-21] MEDS: REMOVE OLD PATCH T-DERMAL SCH (08:54)
--- NOTE | 2017-11-21 09:29 | HHI.PYPN ---
Subjective Chief Complaint: patient demented, assaultive towards Remarks Patient seen in day room with nurse Carroll, chart reviewed, patient compliant medications, patient discussed with nurse.. Patient continues diffusely confused with attempts at confabulation approximations to discitis his cognitive deficits. While is been no significant behavioral problems on the unit does take redirection considering his history of significant behavior issues at home and with family I feel addition of a small dose of Seroquel in the afternoon evening would be appropriate. There continues attempts to find appropriate placement for this gentleman. Acidophil the addition of this medication but allow whatever placement is discovered to have a higher chance of success. Will add Seroquel 25 mg at 2 PM and 8 PM Review of Systems Except as stated in HPI: all other systems reviewed are Neg Mental Status Examination Appearance: Disheveled Consciousness: Alert Orientation: Person, Place (vaguely), Date/Time (vaguely) Motor Activity: Normal gait Speech: Unremarkable Language: Adequate Fund of Knowledge: Inadequate Attention and Concentration: Easily Distracted Memory: Impaired Mood: Other (euthymic to mildly dysphoric) Affect: Other (slight decrease range of motion intensity) Thought Process & Associations: Disorganized Thought Content: Other (disorganized) Hallucination Type: None Delusion Type: None (vigilant) Suicidal Ideation: No Suicidal Plan: No Suicidal Intention: No Homicidal Ideation: No Homicidal Plan: No Homicidal Intention: No Insight: Poor Judgment: Poor Results Vitals/IOs Vital Signs Date Time Temp Pulse Resp B/P (MAP) Pulse Ox O2 Delivery O2 Flow Rate FiO2 11/21/17 06:23 97.9 74 17 130/57 (81) 98 Intake and Output 11/21/17 11/21/17 11/22/17 08:00 16:00 00:00 Intake Total 0 ml Output Total 400 ml Balance -400 ml Assessment & Plan Problem List: (1) ALZHEIMER'S DISEASE WITH LATE ONSET ICD Codes: G30.1 - ALZHEIMER'S DISEASE WITH LATE ONSET (2) DEMENTIA IN OTH DISEASES CLASSD ELSWHR W BEHAVIORAL DISTURB ICD Codes: F02.81 - DEMENTIA IN OTH DISEASES CLASSD ELSWHR W BEHAVIORAL DISTURB Assessment & Plan Estimated LOS: days patient continues confused demente though no significant behavioral problems, however with review of patient's behaviors leading to his hospitalization at feel the addition of Seroquel 25 mg 2 PM and 8 PM would be beneficial. Patient also schedule for [place] tomorrow Justification for Cont. Inpt. At this time patient will decompensate of placed in a lower level of care Discharge Planning Continue to work with family related to placement issues Request HC Surrog/Guard Advoc?: Yes Tacos Jimenez MD Nov 21, 2017 09:29
--- NOTE | 2017-11-21 13:33 | PD.TTN ---
Patient Problems 1. Discharge planning 2. Medication compliance 3. Knowledge deficit 4. Lack of coping skills Progress Toward Goals Provider Present: Dr. Temitope Jimenez Provider Input: 11/19/2017: patient will be assess for medication adjustment; counselor is instructed to contact family Nurse(s) Present: WILFRIDO Dugan Nurse(s) Input: 11/19/2017; patient is eating and somewhat resisted with medication, requires coaching and encouragment. Psychiatric Counselors Present: HERMAN Melissa Psych Therapist Input: 11/19/2017; counselor will contact family and discuss dc planning Group Spec/RT/OT/SPANGLER Present: Giovanni Montgomery OT Group Spec/RT/OT/SPANGLER Input: 11/19/2017; patient attends select groups Documentation Scribe: Denise Abel Nov 21, 2017 13:33
[2017-11-21] MEDS: QUEtiapine FUMARATE 25 MG TAB PO SCH ×2 (15:38→19:45)
[2017-11-21 17:56] VITALS: BP 131/74; PULSE 79; RESP 17; TEMP 97.3; O2SAT 99
[2017-11-22 06:03] VITALS: BP 137/67; PULSE 82; RESP 17; TEMP 97.5; O2SAT 98
[2017-11-22] MEDS: NICOTINE 21 MG/24 HR PATCH T-DERMAL SCH (08:22)
[2017-11-22] MEDS: MEMANTINE HCL 10 MG TAB PO SCH (08:22)
[2017-11-22] MEDS: ASPIRIN EC 81 MG TABEC PO SCH (08:22)
[2017-11-22] MEDS: REMOVE OLD PATCH T-DERMAL SCH (08:23)
[2017-11-22] MEDS ORDERED: ECASA81 PO (10:55)
[2017-11-22] MEDS ORDERED: AMLO5 PO (10:55)
[2017-11-22] MEDS ORDERED: MEMA1TAB2 PO (10:55)
[2017-11-22] MEDS ORDERED: SERO25TA PO (10:55)
--- NOTE | 2017-11-22 10:58 | HHI.DS ---
Psychiatry Discharge Summary Inpatient Psychiatric care?: Yes Advance Directive: No Reason Not Provided: NOT INTERESTED Mental Health AdvanceDirective: No Health Care Proxy: No Admission Admission Date Nov 15, 2017 at 01:00 Admission Diagnosis: (1) ALZHEIMER'S DISEASE WITH LATE ONSET ICD Code: G30.1 - ALZHEIMER'S DISEASE WITH LATE ONSET (2) DEMENTIA IN OTH DISEASES CLASSD ELSWHR W BEHAVIORAL DISTURB ICD Code: F02.81 - DEMENTIA IN OTH DISEASES CLASSD ELSWHR W BEHAVIORAL DISTURB Brief History Patient is a 77 with Afro-[place] male comes here under an ex parte signed by his and signed by Billing Manager Munir. Patient initially screened at [facility] with urine toxicology negative bladder: Negative. Patient transferred here under the [place] act. The ex parte states patient has been showing increased aggression at home physically laying hands on his pushing shoving her to the blood pressure feels fearful for her safety. It appears there is no other past significant psychiatric history. At the present time patient sitting quietly in his room RN present throughout session and family practice resident Dr. Khan he is calm cooperative though obviously diffusely confused making efforts to disguises his confusion and disorientation. While he knows his [place] [id number] in November he is confused as to if this is really a hospital, he does not know the activities going on in the city right now. Attempted looks like he is guessing get an answer and watching our expressions. He is confusing also as to his marital status. The activities that occurred leading to the ex parte. He does deny any prior psychiatric contact hospitalization her psychotropic medication. He denies any suicidality homicidality voices or visions. He is somewhat vague about use of alcohol and marijuana. At this time patient does meet criteria for involuntary psychiatric hospitalization under the [place] act. I'll do first opinion request second opinion. I feel he does not have capacity. I'll ask for healthcare surrogate and guardian advocate. Above hospitalist also consult of this gentleman. Also have PT consult with us. Will have counselor contact patient's to get further information. The patient is a 77 -[place] man, domiciled in [place], who came under ex-parte, initiated by his due to increased aggressive behavior at home with his . Patient was consulted to me for second opinion. On psychiatric evaluation patient is calm, disoriented, confused. Patient does not know the reason of his hospitalization, he does not remember what brought him here. He says that he was brought here because his phone was ringing and his was not picking up. Patient has a little confabulatory statement to fill out gap of memory. He reports good mood, denies suicidal or homicidal ideation, denies visual and auditory hallucinations. Tobacco Use In Past 30 Days: No Tobacco Past 30 Days Alcohol Use: Never Hospital Course Patient's hospital course was uneventful while his cognitive disabilities remained consistent the also showed no significant behavioral issues. There is some mild intermittent irritability towards late afternoon and evening but he was redirectable. He does denies suicidality homicidality voices or visions. The been contact with patient's 2 daughters live in [place] along with his extended family members that live local along with his brother. Family history sided deny agree with the patient being discharged today to the family. His brother will be staying with him along with her niece who has medical training. Another family member. Once the 2 daughters arrive here from [place] the family will discuss further placement issues. Patient was briefly [place] per [place] commitment. Billing Manager Goran also order discharge of the patient to his family who be discharged today if Rx 1 month the follow- up the [place] outpatient clinic Results Blood Pressure 137 / 67 Vital Signs Date Time Temp Pulse Resp B/P (MAP) Pulse Ox O2 Delivery O2 Flow Rate FiO2 11/22/17 06:03 97.5 82 17 137/67 (90) 98 Laboratory Results Test 11/16/17 07:50 Cholesterol Level 163 MG/DL (120-200) HDL Cholesterol 71.8 MG/DL (40.0-60.0) Hemoglobin A1c 5.6 % (4.3-6.0) LDL Cholesterol 82 MG/DL (0-99) Triglycerides Level 44 MG/DL (42-150) Summary of Procedures None done Pending results at discharge: No Medications # of Antipsychotic meds at D/C: 1 Approp Antipsych med options 1 - Minimum of three failed multiple trials of monotherapy. 2 - Documented plan to taper to monotherapy due to previous use of multiple meds OR cross-taper in progress at D/C. 3 - Documentation of augmentation of Clozapine. 4 - Justification other than those listed in allowable values 1-3, document here : Discharge Discharge Date: Nov 22, 2017 Discharge Diagnosis: (1) ALZHEIMER'S DISEASE WITH LATE ONSET Diagnosis: Principal ICD Code: G30.1 - ALZHEIMER'S DISEASE WITH LATE ONSET (2) DEMENTIA IN OTH DISEASES CLASSD ELSWHR W BEHAVIORAL DISTURB Diagnosis: Principal ICD Code: F02.81 - DEMENTIA IN OTH DISEASES CLASSD ELSWHR W BEHAVIORAL DISTURB Pt Condition on Discharge: Stable Discharge Disposition: Discharge Home Discharge Instructions Diet Instructions: As Tolerated, No Restrictions Activities you can perform: Regular-No Restrictions Scheduled Appointment: [place] outpatient clinic Discharge Time > 30 minutes Mental Status Examination Appearance: Disheveled Consciousness: Alert Orientation: Person, Place (vaguely), Date/Time (vaguely) Motor Activity: Normal gait Speech: Unremarkable Language: Adequate Fund of Knowledge: Inadequate Attention and Concentration: Easily Distracted Memory: Impaired Mood: Other (euthymic to mildly dysphoric) Affect: Other (slight decrease range of motion intensity) Thought Process & Associations: Disorganized Thought Content: Other (disorganized) Hallucination Type: None Delusion Type: None (vigilant) Suicidal Ideation: No Suicidal Plan: No Suicidal Intention: No Homicidal Ideation: No Homicidal Plan: No Homicidal Intention: No Insight: Poor Judgment: Poor Discharge/Advance Care Plan Health Problems: (1) ALZHEIMER'S DISEASE WITH LATE ONSET (2) DEMENTIA IN OTH DISEASES CLASSD ELSWHR W BEHAVIORAL DISTURB Goals to promote your health * To prevent worsening of your condition and complications * To maintain your health at the optimal level Directions to meet your goals Take your medications as prescribed Follow your dietary instruction Follow activity as directed Keep your appointments as scheduled Take your immunizations and boosters as scheduled If your symptoms worsen call your PCP, if no PCP go to Urgent Care Center or Emergency Room For 24/7 questions related to your inpatient stay or results of tests pending at discharge, please contact Dr. Tacos Jimenez at Smoking is Dangerous to Your Health. Avoid second hand smoking Tacos Jimenez MD Nov 22, 2017 10:58
== END 2017-11-22 12:35 | disposition home or self-care (01) | DRG 57 ==
LOC: H250 01:00
PROVIDERS: ADMIT Psychiatry & Neurology Psychiatry; ATTEND Psychiatry & Neurology Psychiatry
DX: G30.1 Alzheimer's disease with late onset (principal); F02.81 Dementia in other diseases classified elsewhere, unspecified severity, with behavioral disturbance; D64.9 Anemia, unspecified; I10 Essential (primary) hypertension
CPT/HCPCS: 80048; 80061; 81001; 82607; 83036; 84443; 85025; 86592; 95819